=== PATIENT | male | born 1990 | race Caucasian/White ===

== ENCOUNTER 2018-11-20 09:03 | Emergency (ER) | payer OTHER ==
[2018-11-20] MEDS: ONDANSETRON (ODT) 4 MG TAB ODT (09:50)
[2018-11-20] MEDS: LIDOCAINE/MYLANTA 40 ML BTL PO (09:51)
[2018-11-20] MEDS: BELLADONNA/PHENOBARBITAL TAB PO (09:51)
[2018-11-20] MEDS: FAMOTIDINE 20 MG TAB PO (09:51)
== END 2018-11-20 10:28 | disposition home or self-care (01) ==
LOC: FTE 10:28
DX: R10.13 Epigastric pain (principal); E66.9 Obesity, unspecified; Z68.41 Body mass index [BMI] 40.0-44.9, adult
CPT/HCPCS: 99283; Z7502